=== PATIENT | male | born 1995 | race Hispanic/Latino ===

== ENCOUNTER 2022-01-01 08:55 | Outpatient (CLI) | payer BC | END 2022-01-01 08:56 | disposition home or self-care (01) | LOC: BICRAD 08:55 | PROVIDERS: ATTEND Nurse Practitioner Family | DX: M54.41 Lumbago with sciatica, right side (principal); Q76.49 Other congenital malformations of spine, not associated with scoliosis | CPT/HCPCS: 72100 ==